=== PATIENT | female | born 1965 | race Caucasian/White ===

== ENCOUNTER 2021-03-02 08:22 | Emergency (ER) | payer SELFPAY ==
[~2021-03-02] VITALS: Ht 162.6 cm; Wt 95.9 kg
[2021-03-02] MEDS ORDERED: KETOROLAC 30 MG/ML VIAL. IVP ONE (09:45)
[2021-03-02] MEDS ORDERED: IV NORMAL SALINE 1000ML BAG 1,000 ML IV ONE (09:45)
[2021-03-02 09:47] LABS: BILIRUBIN,URINE SMALL (NEG); CLARITY,URINE CLEAR; COLOR,URINE YELLOW; NITRITE,URINE NEGATIVE (NEG); PH,URINE 5.5 (<5.0-8.0); PROTEIN,URINE NEGATIVE (NEG-TRACE); UROBILINOGEN,URINE 0.2 mg/dL (0.2 mg/dL)
[2021-03-02 09:48] LABS: BASO # 0.1 x10^3/uL (0.0-0.2); BASO % 1 % (0-3); EOS % 1 % (0-3); HEMATOCRIT 45.6 % (36.0-47.0); HEMOGLOBIN 15.6 g/dL (12.0-15.5); LYMPH # 1.8 x10^3/uL (1.0-4.8); LYMPH % 23 % (24-48); MEAN CORPUSCULAR HEMOGLOBIN 32 pg (25-35); MEAN CORPUSCULAR HGB CONC 34 g/dL (31-37); MEAN CORPUSCULAR VOLUME 94 fL (79-100); MONO # 0.4 x10^3/uL (0.0-1.1); MONO % 5 % (0-9); NEUT # 5.6 x10^3/uL (1.8-7.7); NEUT % 70 % (31-73); PLATELET COUNT 273 x10^3/uL (140-400); RED BLOOD COUNT 4.86 x10^6/uL (3.50-5.40); RED CELL DISTRIBUTION WIDTH 13.6 % (11.5-14.5); WHITE BLOOD COUNT 7.9 x10^3/uL (4.0-11.0)
[2021-03-02 09:58] LABS: BACTERIA,URINE 0 /HPF (0-FEW); RBC,URINE 20-40 /HPF (0-2); WBC,URINE OCC /HPF (0-4)
--- NOTE | 2021-03-02 10:07 | RAD ---
EXAMINATION: CT abdomen and pelvis without IV contrast. INDICATION:55 years, Female, flank pain. TECHNIQUE: Axial CT images of the abdomen and pelvis were obtained. Coronal and sagittal reformatted performed. COMPARISON: None. Exposure: One or more of the following individualized dose reduction techniques were utilized for thi s examination: 1. Automated exposure control 2. Adjustment of the mA and/or kV according to patient size 3. Use of iterative reconstruction technique. FINDINGS: LOWER CHEST: Subsegmental atelectasis versus scarring in the lingula and right middle lobe. ABDOMEN/PELVIS: Within the limitation of noncontrast exam, Normal size and morphology of the liver. No suspicious focal hepatic lesion. Cholelithiasis without c holecystitis. No biliary ductal dilation. No splenomegaly. Calcified granuloma in the spleen. Mildly atrophic pancreatic parenchyma. Coarse calcifications in the pancreatic tail may reflect a sequelae o f chronic pancreatitis. No adrenal nodule. No hydronephrosis or nephrolithiasis in either kidney. Non specific bilateral perinephric fat stranding. Stomach is decompressed which limits evaluation. No bowel obstruction. Few colonic diverticulosis. Ap parent left colonic wall thickening, likely related to under distention. Mildly distended ileocecal v alve measures up to 2.2 cm. No adjacent fat stranding to suggest acute inflammation. Normal appendix. Normal caliber abdominal aorta. No lymphadenopathy in the abdomen or pelvis by size criteria. Nonspe cific nonenlarged upper abdominal and retroperitoneal lymph nodes, likely reactive. No pneumoperitone um or ascites. Underdistended urinary bladder. Hysterectomy changes. No suspicious pelvic masses. MUSCULOSKELETAL: No acute osseous process or suspicious lesion. Multilevel degenerative changes in the spine. Small fa t-containing umbilical hernia. IMPRESSION: 1. No acute abnormality in the abdomen or pelvis, specifically no obstructive uropathy or urolithiasi s. 2. Distended ileocecal valve without adjacent fat stranding to suggest acute inflammation or discrete masses. No bowel dilatation. However, further evaluation with colonoscopy to exclude occult lesion i s recommended. 3. Cholelithiasis without CT evidence of acute cholecystitis. Electronically signed by: Kelly Mccauley MD (03/02/2021 10:05 AM) [id number]
--- NOTE | 2021-03-02 10:28 | ED.ADGEN ---
Past Medical History Past Surgical History: No Surgical History Smoking Status: Current Every Day Smoker Alcohol Use: Occasionally General Adult EDM: Chief Complaint: BACK PAIN - NO INJURY HPI: HPI: Patient is a 55-year-old female who presents to the emergency room after having an episode of right-sided flank pain. Patient states that she had a mild pain and toss and turn throughout the night. She states around 430 this morning she got this sharp cramping pain in her right side that would not go away. She states the pain was unbearable so she came to the emergency room. She states she was sweating and having dry heaves. She was unable to vomit. She has not had any fevers, chills, sweats. She was feeling normal when she first laid down last night. She has never had anything like this previously. She states that shortly after arriving here she tried to urinate to give a urine sample. She states she had to strain to get it out and she noticed that there was a small stone looking object at the bottom of the toilet after urinating. She also noticed some blood. She states that shortly after that her pain significantly i mproved. She now feels sore. Review of Systems: Review of Systems: Complete ROS is negative unless otherwise documented in HPI Current Medications: Current Medications Medications (Trade) Dose Ordered Sig/Brennon Start Time Stop Time Status Last Admin Dose Admin Ketorolac Tromethamine (Toradol 30mg Vial) 30 mg 1X ONCE 03/02/21 09:45 03/02/21 09:46 DC 03/02/21 10:01 30 MG Sodium Chloride 1,000 ml @ 1,000 mls/hr Q1H ONCE 03/02/21 09:45 03/02/21 10:44 03/02/21 10:07 1,000 MLS/HR Allergies: Allergies: Allergies Coded Allergies Type Severity Reaction Last Updated Verified No Known Drug Allergies 03/02/21 No Physical Exam: PE: General: Awake, alert, NAD. Well Nourished, well hydrated. Cooperative HEENT: Atraumatic, EOMI, PERRL, airway patent, moist oral mucosa Neck: Supple, trachea midline Respiratory: CTA bilaterally, normal effort, no wheezing/crackles CV: RRR, no murmur, cap refill <2 GI: Soft, nondistended, nontender, no masses MSK: No obvious deformities Skin: Warm, dry, intact Neuro: A&O x3, speech NL, sensory and motor grossly intact, no focal deficits Psych: Normal affect, normal mood, not suicidal or homicidal Current Patient Data: Labs: Laboratory Tests Test 03/02/21 08:40 03/02/21 09:35 Urine Collection Type Unknown Urine Color Yellow Urine Clarity Clear Urine pH 5.5 (<5.0-8.0) Urine Specific Palms 1.025 (1.000-1.030) Urine Protein Negative mg/dL (NEG-TRACE) Urine Glucose (UA) Negative mg/dL (NEG) Urine Ketones (Stick) Negative mg/dL (NEG) Urine Blood Large (NEG) Urine Nitrite Negative (NEG) Urine Bilirubin Small (NEG) Urine Urobilinogen Dipstick 0.2 mg/dL (0.2 mg/dL) Urine Leukocyte Esterase Negative (NEG) Urine RBC 20-40 /HPF (0-2) Urine WBC Occ /HPF (0-4) Urine Squamous Epithelial Cells Mod /LPF Urine Bacteria 0 /HPF (0-FEW) Urine Mucus Mod /LPF White Blood Count 7.9 x10^3/uL (4.0-11.0) Red Blood Count 4.86 x10^6/uL (3.50-5.40) Hemoglobin 15.6 g/dL (12.0-15.5) H Hematocrit 45.6 % (36.0-47.0) Mean Corpuscular Volume 94 fL (79-100) Mean Corpuscular Hemoglobin 32 pg (25-35) Mean Corpuscular Hemoglobin Concent 34 g/dL (31-37) Red Cell Distribution Width 13.6 % (11.5-14.5) Platelet Count 273 x10^3/uL (140-400) Neutrophils (%) (Auto) 70 % (31-73) Lymphocytes (%) (Auto) 23 % (24-48) L Monocytes (%) (Auto) 5 % (0-9) Eosinophils (%) (Auto) 1 % (0-3) Basophils (%) (Auto) 1 % (0-3) Neutrophils # (Auto) 5.6 x10^3/uL (1.8-7.7) Lymphocytes # (Auto) 1.8 x10^3/uL (1.0-4.8) Monocytes # (Auto) 0.4 x10^3/uL (0.0-1.1) Eosinophils # (Auto) 0.0 x10^3/uL (0.0-0.7) Basophils # (Auto) 0.1 x10^3/uL (0.0-0.2) Laboratory Tests 03/02/21 09:35 Vital Signs: Vital Signs Date Time Temp Pulse Resp B/P (MAP) Pulse Ox O2 Delivery O2 Flow Rate FiO2 03/02/21 09:00 97.7 78 20 143/83 99 97.7 EKG: EKG: [] Heart Score: C/O Chest Pain: N/A Risk Factors: Risk Factors: DM, Current or recent (<one month) smoker, HTN, HLP, family history of CAD, obesity. Risk Scores: Score 0 - 3: 2.5% MACE over next 6 weeks - Discharge Home Score 4 - 6: 20.3% MACE over next 6 weeks - Admit for Clinical Observation Score 7 - 10: 72.7% MACE over next 6 weeks - Early Invasive Strategies Radiology/Procedures: Radiology/Procedures: [] Course & Med Decision Making: Course & Med Decision Making Pertinent Labs and Imaging studies reviewed. (See chart for details) Patient is a 55 year old who presents to the Emergency Room complaining of right flank pain. On exam, is well-appearing. Patient's presentation is concerning for a possible kidney stone. Patient was given Toradol for pain relief. CBC, BMP, UA were ordered to evaluate for kidney function and infection. CT abdomen and pelvis without contrast was ordered to evaluate for a kidney stone. CT shows is normal. Patient likely had a stone that passed prior to CT given her description.. At this time, patient does not have significant infection, signs of sepsis, POLA, or uncontrolled pain that requires admission. Patient will be treated symptomatically and referred to urology. Patient's test results and vitals while in the ED were fully reviewed and discussed with the patient. Patient is stable and at this time does not need admission to the hospital. Nicolas bruno discussed strict return precautions and the importance of following up with their Primary Care Physician. Patient stated understanding and was given an opportunity to ask any questions. Patient is in agreement with plan. Tahir Disclaimer: Tahir Disclaimer: This electronic medical record was generated, in whole or in part, using a voice recognition dictation system. Departure Departure Impression: Primary Impression: Kidney stone Disposition: HOME / SELF CARE / HOMELESS Condition: STABLE Referrals: CLEMENTINA MONTALVO MD (PCP) Patient Instructions: Kidney Stones JULIO SAUNDERS MD Mar 02, 2021 10:28
[2021-03-02 12:31] LABS: CALCIUM 9.3 mg/dL (8.5-10.1); CREATININE 0.7 mg/dL (0.6-1.0); GFR 86.2; POTASSIUM 3.8 mmol/L (3.5-5.1)
[2021-03-02 12:32] VITALS: BP 181/90
[2021-03-02 12:37] LABS: ALBUMIN 3.4 g/dL (3.4-5.0); TOTAL BILIRUBIN 0.4 mg/dL (0.2-1.0); TOTAL PROTEIN 6.7 g/dL (6.4-8.2)
== END 2021-03-02 13:14 | disposition home or self-care (01) ==
LOC: ER 08:22
DX: N20.0 Calculus of kidney (principal); F17.200 Nicotine dependence, unspecified, uncomplicated
CPT/HCPCS: 36415; 74176; 80053; 81001; 85025; 96361; 96374; 99285; J1885; J7030